=== PATIENT | female | born 1985 | race Caucasian/White ===

== ENCOUNTER → 2020-08-28 | Outpatient (CLI) | payer BC, MEDICAID | END | disposition home or self-care (01) | LOC: LABWHC1 12:53 | PROVIDERS: ATTEND Internal Medicine Infectious Disease | DX: Z20.828 Contact with and (suspected) exposure to other viral communicable diseases (principal) | CPT/HCPCS: U0003; C9803 ==

== ENCOUNTER → 2021-12-09 | Outpatient (CLI) | payer BC ==
--- NOTE | 2021-12-09 15:20 | P.BASOAP ---
Subjective Progress Note Date: 12/09/21 Principal diagnosis: Morbid obesity 36-year-old female known to our service. Underwent previous lap band placement in 2013. Patient has had intermittent vomiting. Says she has dysphagia with vomiting approximately one time per month. Complaints of pain at the LAP-BAND port site. She would like to have her lap band removal. Objective - Exam Abdomen: Soft, nontender, nondistended Assessment/Plan (1) Morbid obesity Narrative/Plan: Options discussed with patient in detail. Will empty the band at this time. We'll schedule for laparoscopic removal. The patient's lap band port was palpated. The site was aseptically prepped. The Flores needle was advanced into the port. A total of 3 ml of fluid was removed. Pressure was held and a sterile dressing was applied. Plan: Date: Initial Weight: Initial BMI: Current Weight: Current BMI: Type of Surgery: Total Volume in Band: Previous Volume: Volume Removed: Volume Added: Band Size:
[2021-12-10 12:44] VITALS: BP 135/80; PULSE 97; BMI 49.7
== END ==
LOC: BARWHC3 14:16
PROVIDERS: ATTEND Surgery
DX: E66.01 Morbid (severe) obesity due to excess calories (principal); Z98.84 Bariatric surgery status; Z68.42 Body mass index [BMI] 45.0-49.9, adult
CPT/HCPCS: 99212

== ENCOUNTER → 2022-01-17 | Outpatient (CLI) | payer BC ==
[2022-01-17 16:31] LABS: Basophils # (A) 0.06 X 10*3/uL (0.00-0.10); Basophils % (A) 0.4 %; Eosinophils # (A) 0.12 X 10*3/uL (0.04-0.35); Eosinophils % (A) 0.9 %; HCT 44.3 % (37.2-46.3); HGB 13.9 g/dL (12.0-15.0); Immature Grans, Automated 0.3 %; Lymphocytes % (A) 19.7 %; MCH 27.6 pg (27.0-32.0); MCHC 31.4 g/dL (32.0-37.0); MCV 88.1 fL (80.0-97.0); Mean Platelet Volume 9.8 fL (9.5-12.2); Monocytes % (A) 5.1 %; NRBC Per 100 WBC 0 /100 WBCS (0.0-0.0); Neutrophils # (A) 10.12 X 10*3/uL (1.80-7.70); Neutrophils % (A) 73.6 %; Platelet Count 407 X 10*3/uL (140-440); RBC 5.03 X 10*6/uL (4.10-5.20); RDW 14.1 % (11.5-14.5); WBC 13.74 X 10*3/uL (4.50-10.00)
[2022-01-17 17:19] LABS: African American GFR (CKD) 136.9 (60.0-200.0); Albumin 4.7 g/dL (3.8-4.9); Albumin/Globulin Ratio 1.52 (1.60-3.17); Anion Gap 14.4 mmol/L (10.00-18.00); BUN/Creat Ratio 20.83 Ratio (12.00-20.00); Blood Urea Nitrogen 12.5 mg/dL (9.0-27.0); Calcium 9.6 mg/dL (8.7-10.3); Carbon Dioxide 20.6 mmol/L (20.0-27.5); Globulin 3.1 g/dL (1.6-3.3); Non-African American GFR(CKD) 118.1 (60.0-200.0); Potassium 4.6 mmol/L (3.5-5.5); Total Bilirubin 0.3 mg/dL (0.30-1.20); Total Protein 7.8 g/dL (6.2-8.2)
== END | disposition home or self-care (01) ==
LOC: LABPAT 12:02
PROVIDERS: ATTEND Surgery
DX: Z01.818 Encounter for other preprocedural examination (principal)
CPT/HCPCS: 80053; 85025; 93005

== ENCOUNTER 2022-02-13 06:25 | Day surgery (SDC) | payer BC ==
[2022-02-12 08:27] VITALS: BMI 50.5
--- NOTE | 2022-02-12 15:48 | P.GSHP ---
History of Present Illness H&P Date: 02/12/22 Chief Complaint: Lap band intolerance 36-year-old female recently seen in the bariatric clinic. Patient with complaints of abdominal discomfort at the port site. Has intermittent episodes of vomiting. Her band was emptied. Patient is interested in lap band removal. States that it has not worked well for her for weight loss purposes. Past Medical History Past Medical History: No Reported History History of Any Multi-Drug Resistant Organisms: None Reported Past Surgical History: Adenoidectomy, Bariatric Surgery Additional Past Surgical History / Comment(s): Lap band 2010, plastic surgery by mouth after dog attack, wisdom teeth extracted. Past Anesthesia/Blood Transfusion Reactions: Postoperative Nausea & Vomiting (PONV) Past Psychological History: No Psychological Hx Reported Smoking Status: Former smoker Past Alcohol Use History: Occasional Additional Past Alcohol Use History / Comment(s): Quit smoking in 2019. Past Drug Use History: Marijuana Additional Drug Use History / Comment(s): Edibles a few times a week. Aware no use 24 hrs prior to procedure. - Past Family History Mother Family Medical History: Cancer Additional Family Medical History / Comment(s): Cervical cancer. Medications and Allergies Home Medications Medication Instructions Recorded Confirmed Type Cetirizine HCl [Zyrtec] 10 mg PO DAILY 02/12/22 02/12/22 History Allergies Allergy/AdvReac Type Severity Reaction Status Date / Time No Known Allergies Allergy Verified 02/12/22 08:13 Surgical - Exam Physical exam: General: Well-developed, well-nourished HEENT: Normocephalic, sclerae nonicteric Abdomen: Nontender, nondistended, mild tenderness at the port site Extremities: No edema Neuro: Alert and oriented Assessment and Plan (1) Morbid obesity Narrative/Plan: 36-year-old female with frequent vomiting, abdominal pain, and poor weight loss. We'll proceed with laparoscopic, possible open lap band removal. Risks of bleeding, infection, gastric leak, bowel perforation, hernia, persistent pain, reflux, dysphagia, conversion to an open procedure reviewed. She understands and wishes to proceed. Status: Acute Code(s): E66.01 - MORBID (SEVERE) OBESITY DUE TO EXCESS CALORIES SNOMED Code(s): 602127950
[~2022-02-13 06:25] MED LIST: DEXAMETHASONE SOD PHOSPHATE 4 MG/ML 1 ML VIAL IV ONE; HYDROmorphone 0.5 MG/0.5 ML SYRINGE IVP PRN; LACTATED RINGERS 1,000 ML IV SCH; LIDOCAINE 1% (10MG/ML) FOR IV START INTRADERMA PRN; MIDAZOLAM 2 MG/2 ML VIAL IV PRN; ONDANSETRON 4 MG/2 ML VIAL IVP ONE; ceFAZolin 3 GM in SODIUM CHLORIDE 0.9% 100 ML IVPB PRN
[2022-02-13] MEDS ORDERED: SCOPOLAMINE 1 MG/72 HR PATCH TRANSDERM ONE (07:21)
[2022-02-13] MEDS ORDERED: MIDAZOLAM 2 MG/2 ML VIAL IV ONE (07:22)
[2022-02-13 07:28] LABS: Basophils % (A) 0 %; Eosinophils # (A) 0.1 k/uL (0-0.7); Eosinophils % (A) 2 %; HCT 42.6 % (34.0-46.0); Lymphocytes % (A) 33 %; MCH 29.2 pg (25.0-35.0); MCHC 32.8 g/dL (31.0-37.0); Mean Platelet Volume 7.7; Monocytes # (A) 0.4 k/uL (0-1.0); Monocytes % (A) 4 %; Neutrophils # (A) 5.3 k/uL (1.3-7.7); Neutrophils % (A) 59 %; Platelet Count 414 k/uL (150-450); RBC 4.78 m/uL (3.80-5.40); RDW 14.6 % (11.5-15.5)
[2022-02-13] MEDS ORDERED: PROPOFOL 10 MG/ML 20 ML VIAL IV ONE (08:18)
[2022-02-13] MEDS ORDERED: fentaNYL (PF) 50 MCG/ML 2 ML AMP ONE (08:18)
[2022-02-13] MEDS ORDERED: NEOSTIGMINE 1 MG/ML 10 ML VIAL ONE (08:18)
[2022-02-13] MEDS ORDERED: LIDOCAINE 2% INJ 20 MG/ML (2 ML VIAL) ONE (08:18)
[2022-02-13] MEDS ORDERED: ROCURONIUM 10 MG/ML (5 ML VIAL) IV ONE (08:18)
[2022-02-13] MEDS ORDERED: HYDROmorphone (PF) 1 MG/ML ONE (08:18)
[2022-02-13] MEDS ORDERED: GLYCOPYRROLATE 0.2 MG/ML 2 ML VIAL ONE (08:18)
[2022-02-13] MEDS ORDERED: MIDAZOLAM 2 MG/2 ML VIAL ONE (08:18)
[2022-02-13] MEDS ORDERED: SUCCINYLCHOLINE CHLORIDE VIAL 200 MG/10 ML VIAL IV ONE (08:18)
[2022-02-13] MEDS ORDERED: BUPIVACAIN-EPI 0.25%-1:200,000 30 ML VIAL SQ ONE (08:48)
[2022-02-13 09:44] VITALS: TEMP 97.9
[2022-02-13] MEDS ORDERED: HYDROcodone/APAP 5-325MG 1 EACH TAB PO PRN (09:48)
[2022-02-13] MEDS ORDERED: NALOXONE 0.4 MG/ML 1 ML VIAL IV PRN (09:48)
--- NOTE | 2022-02-13 09:52 | P.OP ---
Date of Procedure: 02/13/22 Procedure(s) Performed: PREOPERATIVE DIAGNOSIS: Band intolerance/abdominal pain POSTOPERATIVE DIAGNOSIS: Same PROCEDURE: Laparoscopic lap band removal SURGEON: Lydia EBL: Minimal ANESTHESIA: General COMPLICATIONS: None OPERATIVE PROCEDURE: The patient was brought and placed on the operating room table in the supine position. The patient was placed under general anesthesia at that time. The patient was then placed in lithotomy. The abdomen was prepped and draped in the usual sterile fashion. The previous port incision was localized and then incised using a scalpel. The port was easily excised using electrocautery. Entrance into the peritoneal cavity occurred using a 5 mm optical trocar through the old trocar entrance site. Insufflation took place to 15 mmHg. A right subxiphoid 5 mm trocar was placed. This was then removed and the medium Lori hook was used to elevate the left lobe of the liver anteriorly. An additional 5 mm trocar was placed under direct visualization in the left lateral upper quadrant. The original 5 mm trocar was switched to a 15 mm trocar. A additional 5 mm trocar was placed in the right upper quadrant under direct dilatation. There were adhesions to the band in the buccal that were lysed using both the LigaSure and electrocautery. The band was then cut using the laparoscopic coleman. The band was then removed easily in 2 portions through the 15 mm trocar site. The stomach itself was inspected and revealed no evidence of erosion or prolapse. The trochars were removed. The fascia at the 15 mm site was closed using a Maco-Troy [id number] 0 Vicryl stitch. The subcutaneous tissues at the port site was closed using a 3-0 Vicryl suture. The skin at all 4 incision sites were closed using 4-0 Monocryl sutures. Skin glue was then applied. DISPOSITION: Stable to recovery room
[2022-02-13] MEDS ORDERED: LACTATED RINGERS 1,000 ML IV ONE (10:20)
[2022-02-13 10:38] VITALS: PULSE 69; RESP 18
[2022-02-13 11:07] VITALS: BP 124/84
== END 2022-02-13 11:38 | disposition home or self-care (01) ==
LOC: OR 06:25
PROVIDERS: ATTEND Surgery
DX: Z45.89 Encounter for adjustment and management of other implanted devices (principal); E66.01 Morbid (severe) obesity due to excess calories; Z87.891 Personal history of nicotine dependence; Z80.8 Family history of malignant neoplasm of other organs or systems; Z79.899 Other long term (current) drug therapy; F12.90 Cannabis use, unspecified, uncomplicated
CPT/HCPCS: 81025; 85025; 43772; J2250; J0330; J1100; J2710; J0690; J2405; J3010; J1170 ×2; J2704; J2001

== ENCOUNTER → 2022-02-19 | Outpatient (CLI) | payer BC ==
[2022-02-19 12:16] VITALS: BP 138/80; PULSE 95; TEMP 98.2; BMI 48.9
--- NOTE | 2022-02-19 14:07 | P.BASOAP ---
Subjective Progress Note Date: 02/19/22 Principal diagnosis: Post lap band removal Patient returns after having LAP-BAND removed last Wednesday. Pain has been minimal. Tolerating diet. No further nausea or vomiting. Patient has had a rash increasing in severity over the last 2 days. She was started on a Medrol Dosepak yesterday. Minimal improvement. No fevers. Objective - Vital Signs Vital signs: Vital Signs Temp 98.2 F 02/19/22 12:12 Pulse 95 02/19/22 12:12 Resp BP 138/80 02/19/22 12:12 Pulse Ox FiO2 Intake & Output 02/18/22 02/19/22 02/19/22 18:59 06:59 18:59 Weight 125.191 kg - Exam Abdomen: Soft, nondistended, incisions clean dry, rash present across abdomen most severe around each incision site, glue still present and removed at the bedside Assessment/Plan (1) Morbid obesity Narrative/Plan: Patient doing well after lap band removal with the exception of the abdominal rash. I suspect she is ALLERGIC to the glue that was utilized. The glue was removed. Continue finishing Medrol Dosepak, steroid cream, oral Benadryl. She will contact me with any further difficulties. Plan: Date: 02/19/22 Initial Weight: Initial BMI: Current Weight: 125.191 kg Current BMI: 48.9 Type of Surgery: Total Volume in Band: 0 Previous Volume: Volume Removed: Volume Added: Band Size:
== END ==
LOC: BARWHC3 11:58
PROVIDERS: ATTEND Surgery
DX: E66.01 Morbid (severe) obesity due to excess calories (principal); Z98.84 Bariatric surgery status; R21 Rash and other nonspecific skin eruption; Z68.42 Body mass index [BMI] 45.0-49.9, adult
CPT/HCPCS: 99211

== ENCOUNTER → 2024-07-12 | Outpatient (CLI) | payer BC ==
--- NOTE | 2024-07-12 09:09 | MM ---
Reason for Exam: Clinical finding. Baseline mammogram. Patient History: Menarche at age 11. Patient has no children. Premenopausal. Last menstrual period: 07/08/2024 Risk Values: Tasha 5 year model risk: 0.6%. NCI Lifetime model risk: 12.2%. Prior Study Comparison: Patient's first Mammogram. Tissue Density: There are scattered areas of fibroglandular density. Findings: Analyzed By CAD. The pattern is symmetrical. There circumscribed hyperdense nodules in the upper outer bilateral breasts may be some intermammillary. An area of concern as marked on right breast which appears to correlate with the outer right breast, potentially lymph node. Overall Assessment: Incomplete: need additional imaging evaluation, BI-RAD 0 Management: Diagnostic Breast Ultrasound of both breasts. A negative mammogram report should not preclude additional follow up of suspicious palpable abnormalities. Patient should continue monthly self breast exam. A clinical breast exam by your physician is recommended on an annual basis and results should be correlated with mammographic findings. Note on Tasha scores and lifetime risk: 1. A Tasha score greater than 3% is considered moderate risk. If this is the case, consider specialist referral to assess eligibility for a risk reducing agent. 2. If overall lifetime risk for the development of breast cancer is 20% or higher, the patient may qualify for future screening with alternating mammogram and breast MRI. [facility], , 07/12/2024 8:58 AM. Electronically signed and approved by: Darren Jorge D.O. Radiologis
--- NOTE | 2024-07-12 09:38 | USB ---
Reason for Exam: Clinical finding. Patient History: Menarche at age 11. Patient has no children. Premenopausal. Risk Values: Tasha 5 year model risk: 0.6%. NCI Lifetime model risk: 12.2%. Technique: Method: Whole Breast Handheld. Doppler: Color. Patient Position: Supine. Findings: The whole breast of both breasts, the axilla of both breasts and the retroareolar of both breasts were scanned. Right breast: 8 centimeters from the nipple 10:00 position is a hypoechoic area of with posterior wall enhancement measuring 0.9 x 0.4 x 0.8 cm. Some internal color flow is present at the margin. Additional evaluation with biopsy is recommended. Largest lymph node is within the right breast 11:00 position 16 cm from the nipple estimated to measure 2.2 x 1.5 x 1.9 cm. Internal color flow is evident. Left breast: No suspicious cystic or solid lesions evident.. Overall Assessment: Suspicious, BI-RAD 4 Management: Ultrasound Core Biopsy of the right breast. A clinical breast exam by your physician is recommended on an annual basis and results should be correlated with mammographic findings. This exam should not preclude additional follow-up of suspicious palpable abnormalities. Results were given to the patient verbally at the time of exam. [facility], , 07/12/2024 9:33 AM. Electronically signed and approved by: Darren Jorge D.O. Radiologis
== END | disposition home or self-care (01) ==
LOC: RADMAMWWP 08:24
PROVIDERS: ATTEND Family Medicine
DX: R92.323 Mammographic fibroglandular density, bilateral breasts (principal); N64.4 Mastodynia
CPT/HCPCS: 77062; 77066

== ENCOUNTER → 2024-07-26 | Day surgery (SDC) | payer BC ==
--- NOTE | 2024-07-26 11:56 | USB ---
Risk Values: Tasha 5 year model risk: 0.6%. NCI Lifetime model risk: 12.2%. Electronically signed and approved by: Anika Martin M.D. Radiologist
== END ==
LOC: RADUSWWP 09:47
PROVIDERS: ATTEND Surgery
DX: Z53.8 Procedure and treatment not carried out for other reasons (principal); R92.8 Other abnormal and inconclusive findings on diagnostic imaging of breast

== ENCOUNTER → 2024-08-31 | Outpatient (CLI) | payer BC ==
[2024-08-31 12:54] VITALS: BP 143/85; PULSE 82; RESP 17; TEMP 98.2
--- NOTE | 2024-08-31 13:16 | P.GSCN ---
History of Present Illness Consult date: 08/31/24 Reason for Consult: abnormal right breast mammogram/ultrasound Requesting physician: Shy Tom History of present illness: Dariela is a 39 year old female seen in consultation for Dr. Tom regarding an abnormal right breast ultrasound and mammogram. She had a bilateral daignostic mammogram done on 07-12-24 which led to a bilateral breast ultrasound on the same date. The recommendation was for a right breast core biopsy via ultrasound. This was attempted on 07-26-24 but it was felt the area of concern repressentee a lymph node and a repeat study in 6 months both mammogram an ultrasound should be done. She is not complaining of any new lumps masses or nodules of concern in either breast. She is not complaining of any skin changes or nipple discharge. She has never had any surgery on her breast. She has not had any recent trauma or infection in the breast. Caffeine: 1-3 cups/day nicotine: stopped 7 years ago, used to smoke 2 packs/week chocolate: three times a week BCP: from 16 until 38 hormones: none, she polycystic ovarian disease Family history: mother: cervial cancer at 34 paternal 3rd cousin: breat cancer and bilateral mastectomy Hormonal History: menarche: 11 periods regular; LMP ended Aug 28 polycystic ovarian dieasse Surgical History: plastic surgery on face a dog bite lap band lap band removed in 2022 adenoids removed Medical History: none Social HIstory: Nicotine: Stopped 7 years ago Alcohol: occasional drugs: eats edibles to sleep Review of Systems - Constitutional Reports sweats - EENT Eyes: denies blurred vision Ears: deny: decreased hearing, tinnitus Ears, nose, mouth and throat: Denies dysphagia - Breasts bilateral: as per HPI - Cardiovascular Denies chest pain, Denies shortness of breath - Respiratory Denies cough, Denies 7 - Gastrointestinal Gastrointestinal Comment(s): takes weagovy to help with polycystic ovarian disease Reports as per HPI - Genitourinary Genitourinary: Denies dysuria, Denies hematuria Menstruation: Reports as per HPI - Musculoskeletal Reports as per HPI - Integumentary Denies rash, Denies unusual bruising - Neurological Denies headaches, Denies syncope - Psychiatric Reports as per HPI - Endocrine Reports as per HPI - Hematologic/Lymphatic Denies easy bleeding, Denies easy bruising - Allergic/Immunologic Reports seasonal allergies Past Medical History Additional Past Medical History / Comment(s): PCOS. Hx kidney stone 2023. Restless leg syndrome History of Any Multi-Drug Resistant Organisms: None Reported Past Surgical History: Adenoidectomy, Bariatric Surgery Additional Past Surgical History / Comment(s): lap band 2009. lap band removal 02-06-22. 2005 plastic surgery on face r/t dog bite Past Anesthesia/Blood Transfusion Reactions: Postoperative Nausea & Vomiting (PONV) Past Psychological History: No Psychological Hx Reported Smoking Status: Former smoker Past Alcohol Use History: Rare Additional Past Alcohol Use History / Comment(s): quit smoking 2018 Past Drug Use History: Marijuana Additional Drug Use History / Comment(s): THC at night for restless leg Medications and Allergies Home Medications Medication Instructions Recorded Confirmed Type Cetirizine HCl [Zyrtec] 10 mg PO DAILY 02/12/22 08/31/24 History L.acidoph,Paracasei, B.lactis 1 each PO DAILY 07/14/24 08/31/24 History [Probiotic] Semaglutide [Wegovy] 0.5 mg SQ WEEKLY 07/14/24 08/31/24 History Allergies Allergy/AdvReac Type Severity Reaction Status Date / Time adhesive Allergy Rash/Hives Verified 08/31/24 12:52 Surgical - Exam Vital Signs Temp Pulse Resp BP Pulse Ox 98.2 F 82 17 143/85 99 08/31/24 12:53 08/31/24 12:53 08/31/24 12:53 08/31/24 12:53 08/31/24 12:53 - General no distress - Eyes normal ocular movement - ENT no hearing loss - Neck trachea midline - Respiratory normal respiratory effort, clear to auscultation - Cardiovascular Rhythm: regular Heart Sounds: normal: S1, S2 - Abdomen Abdomen: soft, non tender, no guarding, no rigid, no rebound - Integumentary normal turgor - Neurologic no disoriented, no combative - Musculoskeletal normal gait - Psychiatric oriented to time, oriented to person, oriented to place, speech is normal, memory intact Breast Exam: BRA: 46DD Inspection: bilateral grade 3 ptosis palpation: Right breast: Multi positional exam fibrocystic changes, no dominant masses or nodules of concern Right axilla: No adenopathy of concern Left breast: Multi positional exam no dominant masses or nodules of concern Left axilla: No adenopathy of concern Results mammogram and ultrasound reviewed and personally reviewed Assessment and Plan Assessment: Plan Fibrocystic breast changes Plan: Repeat right breast mammogram and ultrasound in 6 months with examination at that time Fibrocystic breast changes most likely aggravated by polycystic ovarian hormonal changes have discussed this with the patient and she is doing well on the Wegovy and will continue that Patient to follow-up sooner any questions or concerns Bilateral mammogram in 1 year CC: Dr. Melissa Shaver
== END ==
LOC: WWCWWP 11:52
PROVIDERS: ATTEND Surgery
DX: N60.11 Diffuse cystic mastopathy of right breast (principal); Z91.09 Other allergy status, other than to drugs and biological substances

== ENCOUNTER → 2025-03-12 | Outpatient (CLI) | payer BC ==
--- NOTE | 2025-03-12 07:52 | MM ---
Reason for Exam: Follow-up at short interval from prior study. Last screening mammogram was performed 8 month(s) ago. Patient History: Menarche at age 11. Patient has no children. Premenopausal. 07/26/2024, US discontinued breast bx RT on the right side. Last menstrual period: 02/27/2025 Risk Values: Tasha 5 year model risk: 0.6%. NCI Lifetime model risk: 12.2%. Prior Study Comparison: 07/12/2024 Bilateral MG 3D diag mammo w/cad [facility], [facility]. Tissue Density: Right: There are scattered areas of fibroglandular density. Findings: Analyzed By CAD. Nodular density upper outer right breast remains stable and again likely reflects an intramammary lymph node. Ultrasound recommended for confirmation. Overall Assessment: Incomplete: need additional imaging evaluation, BI-RAD 0 Management: Diagnostic Breast Ultrasound of the right breast. . Results were given to the patient verbally at the time of exam. Patient should continue monthly self-breast exams. A clinical breast exam by your physician is recommended on an annual basis. This exam should not preclude additional follow-up of suspicious palpable abnormalities. Note on Tasha scores and lifetime risk: 1. A Tasha score greater than 3% is considered moderate risk. If this is the case, consider specialist referral to assess eligibility for a risk reducing agent. 2. If overall lifetime risk for the development of breast cancer is 20% or higher, the patient may qualify for future screening with alternating mammogram and breast MRI. [facility], , 03/12/2025 7:49 AM. Electronically signed and approved by: Zion Butler M.D. Radiologis
--- NOTE | 2025-03-12 08:18 | USB ---
Reason for Exam: Follow-up at short interval from prior study. Patient History: Menarche at age 11. Patient has no children. Premenopausal. 07/26/2024, US discontinued breast bx RT on the right side. Risk Values: Tasha 5 year model risk: 0.6%. NCI Lifetime model risk: 12.2%. Technique: Method: Targeted. Prior Study Comparison: 07/12/2024 Bilateral US breast [facility], [facility]. 07/12/2024 Bilateral MG 3D diag mammo w/cad [facility], [facility]. Findings: The axilla of the right breast and the retroareolar of the right breast were scanned. Again noted is an intramammary lymph node measuring 6 x 4 mm without cortical thickening. No suspicious appearing mass identified. Overall Assessment: Benign, BI-RAD 2 Management: Screening Mammogram of both breasts in 6 months. A clinical breast exam by your physician is recommended on an annual basis and results should be correlated with mammographic findings. This exam should not preclude additional follow-up of suspicious palpable abnormalities. Results were given to the patient verbally at the time of exam. [facility], , 03/12/2025 8:16 AM. Electronically signed and approved by: Zion Butler M.D. Radiologis
== END | disposition home or self-care (01) ==
LOC: RADMAMWWP 07:22
PROVIDERS: ATTEND Surgery
DX: R92.8 Other abnormal and inconclusive findings on diagnostic imaging of breast (principal); R92.321 Mammographic fibroglandular density, right breast
CPT/HCPCS: 77061; 77065

== ENCOUNTER → 2025-03-16 | Outpatient (CLI) | payer BC ==
[2025-03-16 10:22] VITALS: BP 109/70; PULSE 65; RESP 17; TEMP 98.3
--- NOTE | 2025-03-16 10:27 | P.PN ---
Subjective Progress Note Date: 03/16/25 Principal diagnosis: abnormal right breast mammogram/ultrasound 07-12-24 03-16-25 Reason for Consult: Dariela is a 39-year-old female seen in consultation initially on [address] Jhoan Goff. At that time she had an abnormal right breast ultrasound and mammogram. She had a bilateral diagnostic mammogram done on 07-12-2024 which led to a bilateral breast ultrasound on the same date. The recommendation was for a right breast core biopsy via ultrasound. This was attempted on 07-26-2024 but it was felt the area of concern represented a lymph node and a repeat study in 6 months both mammogram and ultrasound was recommended. At that time she was not complaining of any lumps masses or nodules of concern in either breast. She underwent a repeat right breast mammogram and ultrasound in 03-12-2025. The mammogram revealed nodular density upper outer right breast remained stable and likely represented an intramammary lymph node. An ultrasound was performed which confirmed that this was consistent with a lymph node without cortical t hickening. Screening mammogram of both breasts in 6 months was recommended. Since her last visit she had a progesterone eluding IUD placed secondary to heavy uterine bleeding. At this time she is not complaining of any new lumps masses or nodules of concern in either breast. Caffeine: 1-3 cups/day nicotine: stopped 7 years ago, used to smoke 2 packs/week chocolate: three times a week BCP: from 16 until 38 hormones: none, she polycystic ovarian disease Family history: mother: cervial cancer at 34 paternal 3rd cousin: breat cancer and bilateral mastectomy Hormonal History: menarche: 11 periods regular; LMP ended Aug 28 polycystic ovarian dieasse Surgical History: plastic surgery on face a dog bite lap band lap band removed in 2022 adenoids removed Medical History: IUD placed, secondary to uterine bleeding it gives off progesterone Social History: Nicotine: Stopped 7 years ago Alcohol: occasional drugs: eats edibles to sleep Review of Systems - Constitutional Reports sweats - EENT Eyes: denies blurred vision Ears: deny: decreased hearing, tinnitus Ears, nose, mouth and throat: Denies dysphagia - Breasts bilateral: as per HPI - Cardiovascular Denies chest pain, Denies shortness of breath - Respiratory Denies cough, Denies 7 - Gastrointestinal Gastrointestinal Comment(s): takes weagovy to help with polycystic ovarian disease Reports as per HPI - Genitourinary Genitourinary: Denies dysuria, Denies hematuria Menstruation: Reports as per HPI - Musculoskeletal Reports as per HPI - Integumentary Denies rash, Denies unusual bruising - Neurological Denies headaches, Denies syncope - Psychiatric Reports as per HPI - Endocrine Reports as per HPI - Hematologic/Lymphatic Denies easy bleeding, Denies easy bruising - Allergic/Immunologic Reports seasonal allergies Past Medical History Additional Past Medical History / Comment(s): PCOS. Hx kidney stone 2023. Restless leg syndrome History of Any Multi-Drug Resistant Organisms: None Reported Past Surgical History: Adenoidectomy, Bariatric Surgery Additional Past Surgical History / Comment(s): lap band 2009. lap band removal 02-06-222005 plastic surgery on face r/t dog bite Past Anesthesia/Blood Transfusion Reactions: Postoperative Nausea & Vomiting (PONV) Past Psychological History: No Psychological Hx Reported Smoking Status: Former smoker Past Alcohol Use History: Rare Additional Past Alcohol Use History / Comment(s): quit smoking 2018 Past Drug Use History: Marijuana Additional Drug Use History / Comment(s): THC at night for restless leg Medications and Allergies Home Medications Medication Instructions Recorded Confirmed Type Cetirizine HCl [Zyrtec] 10 mg PO DAILY 02/12/22 08/31/24 History L.acidoph,Paracasei, B.lactis 1 each PO DAILY 07/14/24 08/31/24 History [Probiotic] Semaglutide [Wegovy] 0.5 mg SQ WEEKLY 07/14/24 08/31/24 History Allergies Allergy/AdvReac Type Severity Reaction Status Date / Time adhesive Allergy Rash/Hives Verified 08/31/24 12:52 Objective - Vital Signs Vital signs: Intake & Output 03/15/25 03/16/25 03/16/25 18:59 06:59 18:59 Weight 110.677 kg - Constitutional General appearance: Present: cooperative - EENT ENT: Present: hearing grossly normal - Neck Neck: Present: normal ROM - Respiratory Respiratory: bilateral: CTA - Cardiovascular Rhythm: regular Heart sounds: normal: S1, S2 - Integumentary Integumentary: Present: normal turgor - Musculoskeletal Musculoskeletal: Present: gait normal - Psychiatric Psychiatric: Present: A&O x's 3, appropriate affect, intact judgment & insight - Additional findings Additional findings: Breast Exam: BRA: 46DD Inspection: bilateral grade 3 ptosis palpation: Right breast: Multi positional exam fibrocystic changes, no dominant masses or nodules of concern Right axilla: No adenopathy of concern Left breast: Multi positional exam no dominant masses or nodules of concern Left axilla: No adenopathy of concern Assessment and Plan Assessment: Plan Fibrocystic breast changes/stable probable intramammary lymph node right breast Right breast mammogram and ultrasound performed on 03-12-2025 BI-RADS 2 Plan: Fibrocystic breast changes most likely aggravated by polycystic ovarian hormonal changes have discussed this with the patient and she is doing well on the Wegovy and will continue that Patient to follow-up sooner any questions or concerns Bilateral mammogram in 6 months with examination at that time Patient will follow-up sooner any questions or concerns CC: Dr. Melissa Shaver
== END ==
LOC: WWCWWP 08:22
PROVIDERS: ATTEND Surgery
DX: N60.19 Diffuse cystic mastopathy of unspecified breast (principal); R92.8 Other abnormal and inconclusive findings on diagnostic imaging of breast; Z91.048 Other nonmedicinal substance allergy status